=== PATIENT | female | born 1990 | race Caucasian/White ===

== ENCOUNTER → 2024-09-11 15:21 | Outpatient (REF) | payer BC, SELFPAY | LOC: PNTC 15:21 | PROVIDERS: ATTENDING PHYSICIAN Obstetrics & Gynecology | DX: Z29.13 Encounter for prophylactic Rho(D) immune globulin (principal); Z34.82 Encounter for supervision of other normal pregnancy, second trimester | CPT/HCPCS: 36415; 86850; 86900; 86901; 96372; J2790 ==

== ENCOUNTER 2024-09-25 06:51 | Emergency (ER) | payer BC, SELFPAY ==
[2024-09-25 06:54] VITALS: BP 124/81
--- NOTE | 2024-09-25 07:22 | ED.GENMED ---
History of Present Illness
General
Chief Complaint: Chest Problem
Source: patient
Exam Limitations: none
Time Seen by Provider: 09/25/24 07:08
History of Present Illness
History of Present Illness:
34-year-old otherwise healthy female presents with the onset of chest pressure starting last evening. She was sitting watching basketball when it started. It feels like there is a weight on her chest that is constant. It is not made worse with
deep breathing. She denies any more shortness of breath than usual. She is currently 30 weeks with her first . She denies abdominal pain or bleeding. She discussed her symptoms with her OB on-call and they recommend she come
here for evaluation. She took some Tums provided mild relief but still was not able to sleep despite this relief. No leg swelling or calf pain. She is on prenatals but does not take any other medication. No other
Phy Exam
Physical Exam
Physical Exam:
General: Well-appearing female no acute respiratory distress
HEENT: Normocephalic atraumatic
Heart: Regular rate and rhythm
Lungs: Clear no wheeze
Extremities: No cyanosis or edema
Course
Orders/Labs/Results
Orders:
Orders
09/25/24 07:00
EKG [Electrocardiogram (*1)] Urgent
Reason for Study: Chest Pain
EKG- Treatment ONCE
09/25/24 07:38
Complete Blood Count/With Diff Urgent
Comprehensive Metabolic Panel Urgent
Ferritin Urgent
Comment: ADD ON
Iron Urgent
Comment: ADD ON
Lipase Urgent
Total Iron Binding Urgent
Comment: ADD ON
Troponin I Urgent
09/25/24 07:40
Non-stress Test Routine
Reason for Exam: Chest Pressure
Comment: To be performed at testing center
09/25/24 07:45
Add On- LAB Urgent
Tests Added?: Iron, TIBC, ferritin
09/25/24 07:47
Urinalysis Reflex To Culture Urgent
Date Specimen was Collected: 09/25/24
Time Specimen was Collected: 07:46
Urine Microscopic Reflex Cult Urgent
Urine Culture Urgent
ILA Source: U
Specimen Description:
Date Specimen was Collected: 09/25/24
Time Specimen was Collected: 07:46
Abnormal Lab Results
09/25/24 09/25/24
07:38 07:47
RBC 3.44 L 10^6/uL
(4.20-5.40)
Hgb 10.9 L g/dL
(12.0-16.0)
Hct 31.7 L %
(37.0-47.0)
MCH 31.7 H pg
(27.0-31.0)
Abs Immat Gran (auto) 0.1 H 10^3/uL
(0-0.05)
Absolute Neuts (auto) 6.8 H 10^3/uL
(1.4-6.5)
Absolute Monos (auto) 0.8 H 10^3/uL
(0.1-0.6)
Immature Gran % 1.2 H %
(0-0.5)
BUN 5 L mg/dl
(7-17)
Creatinine 0.4 L mg/dL
(0.6-1.0)
Total Protein 6.2 L g/dl
(6.3-8.2)
Leukocyte Esterase Rfl 1+ A
(Negative)
09/25/24 07:38
09/25/24 07:38
Vital Signs
Initial and Last Documented VS:
Initial Vital Signs
Temp Pulse Resp BP Pulse Ox
98.8 F 116 16 124/81 97
09/25/24 06:54 09/25/24 06:54 09/25/24 06:54 09/25/24 06:54 09/25/24 06:54
Last Documented Vital Signs
Temp Pulse Resp BP Pulse Ox
98.8 F 85 16 108/79 98
09/25/24 06:54 09/25/24 08:02 09/25/24 08:02 09/25/24 08:02 09/25/24 07:45
MDM/Problems Addressed
Differential Diagnosis Includes:
Chest pressure. Mild relief with Tums. This is constant since last night. This would be atypical for ACS. There is no pleuritic component. She is not hypoxic nor she tachycardic. Please note initial triage heart rate was 16 however EKG
performed shortly after this showed heart rate in the 80s without ischemic changes. During my exam on the oximeter she has a heart rate in the 80s as well. She is not tachycardic. No signs suggestive of DVT.
*Critical Care Note
Total Time (30-74mins, 75-104mins- exclusive of procedures): Not Applicable
Update Note
Update Note:
Workup here unremarkable with negative troponin and lipase. Patient's vital signs remained stable. No arrhythmias on monitor. Do not suspect ACS or PE. Question possible GI related symptoms such as reflux. Discussed with [facility] who will see the
patient for nonstress test as soon as she is discharged from the emergency room
ED Attending Note
-
Portions of this chart may have been created with voice recognition software.� Occasional wrong word or��sound alike� substitutions may have occurred due to the inherent limitations of voice recognition software.
Discharge Plan
Departure
Patient Disposition: Home (Routine Discharge)
Date of Disposition: 09/25/24
Time of Disposition: 08:21
Patient with high blood pressure during this ER visit?: No
Discharge Problem:
Chest pain
Instructions: Chest Pain PCP Follow Up
Referrals:
Arianne Huston PA-C [Family Provider] -
Activity Restrictions/Additional Instructions:
Please return here for worsening symptoms. Go to the testing center for nonstress test upon leaving the emergency room
Interventions
Interventions:
*Risk Screen - Suicide Last Done: 09/25/24 06:54
*General Assessment Last Done: 09/25/24 07:41
*Neglect/Abuse Screening Last Done: 09/25/24 06:54
*ED- Fall Risk Assessment Last Done: 09/25/24 07:41
*ED COVID-19 Vaccine History Last Done: 09/25/24 07:41
ED- Pulmonary Assessment Last Done: 09/25/24 07:45
Discharge Date and Time
Print Language: [facility]
[2024-09-25 07:40] VITALS: BMI 28.8
[2024-09-25 07:41] VITALS: BP 112/66
[2024-09-25 08:00] VITALS: BP 108/79
[2024-09-25 08:00] LABS: % Basophils 0.4 % (0-2); % Eosinophils 1.5 % (0-6); % Immature Granulocytes 1.2 % (0-0.5); % Lymphocytes 25.5 % (20.5-51.1); % Monocytes 7.7 % (1.7-9.3); % Neutrophils 63.7 % (42.2-75.2); Absolute Eosinophils 0.2 10^3/uL (0-0.7); Absolute Immature Granulocytes 0.1 10^3/uL (0-0.05); Absolute Lymphocytes 2.7 10^3/uL (1.2-3.4); Absolute Monocytes 0.8 10^3/uL (0.1-0.6); Absolute Neutrophils 6.8 10^3/uL (1.4-6.5); Hematocrit 31.7 % (37.0-47.0); Hemoglobin 10.9 g/dL (12.0-16.0); Mean Corp Hgb Conc. 34.4 g/dL (33.0-37.0); Mean Corpuscular Hgb 31.7 pg (27.0-31.0); Mean Corpuscular Volume 92.2 fL (81.0-99.0); Nucleated Red Blood Cells % 0 %; Platelet Count 254 10^3/uL (130-400); Red Blood Cell Count 3.44 10^6/uL (4.20-5.40); Red Cell Dist. Width 13.8 % (11.5-14.5); White Blood Cell Count 10.7 10^3/uL (4.8-10.8)
[2024-09-25 08:02] VITALS: BP 108/79
[2024-09-25 08:06] LABS: Urine Albumin Negative (Neg - Trace); Urine Bilirubin Negative (Negative); Urine Character Clear (Clear); Urine Color Yellow; Urine Glucose Negative (Negative); Urine Ketone Negative (Negative); Urine Leukocyte 1+ (Negative); Urine Nitrite Negative (Negative); Urine Occult Blood Negative (Negative); Urine Urobilinogen Negative (Neg - 1+); Urine pH 6.5 (5.0-9.0)
[2024-09-25 08:08] LABS: ALT (SGPT) 18 U/L (0-35); AST (SGOT) 24 U/L (14-36); Albumin 3.6 g/dl (3.5-5.0); Alkaline Phosphatase 91 U/L (38-126); Blood Urea Nitrogen 5 mg/dl (7-17); Calcium 9.6 mg/dl (8.4-10.2); Carbon Dioxide 23 mmol/L (22-30); Chloride 107 mmol/L (98-107); Estimated Creatinine Clearance > 125 ml/min; Glucose 93 mg/dl (70-99); Lipase 119 U/L (23-300); Sodium 136 mmol/L (135-145); Total Bilirubin 0.4 mg/dl (0.2-1.3); Total Protein 6.2 g/dl (6.3-8.2); eGFR > 60.00
[2024-09-25 08:20] LABS: Iron 129 ug/dl (37-170); Troponin I < 0.012 ng/ml
[2024-09-25 08:29] LABS: Percent Saturation 29 % (20-50); Total Iron Binding Capacity 431 ug/dl (265-497)
[2024-09-25 08:39] LABS: Urine Squamous Cell 26-30 /LPF (Few)
[2024-09-25 08:40] LABS: Urine Urothelial Cell 0-2 /LPF (FEW)
[2024-09-25 08:41] LABS: Urine Bacteria Moderate (Negative)
[2024-09-25 08:45] VITALS: BP 108/79
[2024-09-25 09:16] LABS: Ferritin 19.5 ng/ml (6.24-137)
== END 2024-09-25 08:49 | disposition home or self-care (01) ==
LOC: EMR 06:51
PROVIDERS: Physician Assistant; EMERGENCY PHYSICIAN Emergency Medicine; FAMILY PHYSICIAN Obstetrics & Gynecology
DX: O99.891 Other specified diseases and conditions complicating pregnancy (principal); R07.89 Other chest pain; Z3A.30 30 weeks gestation of pregnancy
CPT/HCPCS: 99284; 80053; 81003; 81015; 82728; 83540; 83550; 83690; 84484; 85025; 87086; 93005

== ENCOUNTER 2024-11-29 11:42 | Observation (INO) | payer BC, SELFPAY ==
[2024-11-29 12:10] VITALS: BMI 31.3
[2024-11-29 12:15] VITALS: BP 125/78
[2024-11-29 13:21] LABS: % Basophils 0.5 % (0-2); % Immature Granulocytes 0.5 % (0-0.5); % Lymphocytes 23.6 % (20.5-51.1); % Monocytes 8.8 % (1.7-9.3); % Neutrophils 65.6 % (42.2-75.2); Absolute Basophils 0.1 10^3/uL (0-0.2); Absolute Eosinophils 0.1 10^3/uL (0-0.7); Absolute Immature Granulocytes 0.1 10^3/uL (0-0.05); Absolute Lymphocytes 2.2 10^3/uL (1.2-3.4); Absolute Monocytes 0.8 10^3/uL (0.1-0.6); Hematocrit 37.6 % (37.0-47.0); Hemoglobin 12.7 g/dL (12.0-16.0); Mean Corp Hgb Conc. 33.8 g/dL (33.0-37.0); Mean Corpuscular Hgb 32.1 pg (27.0-31.0); Mean Corpuscular Volume 94.9 fL (81.0-99.0); Nucleated Red Blood Cells % 0 %; Platelet Count 199 10^3/uL (130-400); Red Blood Cell Count 3.96 10^6/uL (4.20-5.40); Red Cell Dist. Width 13.4 % (11.5-14.5); White Blood Cell Count 9.1 10^3/uL (4.8-10.8)
[2024-11-29 13:32] LABS: ALT (SGPT) 13 U/L (0-35); AST (SGOT) 20 U/L (14-36); Albumin 4.2 g/dl (3.5-5.0); Alkaline Phosphatase 177 U/L (38-126); Blood Urea Nitrogen 7 mg/dl (7-17); Carbon Dioxide 24 mmol/L (22-30); Chloride 106 mmol/L (98-107); Estimated Creatinine Clearance 120 ml/min; Glucose 85 mg/dl (70-99); Potassium 4.2 mmol/L (3.5-5.1); Sodium 136 mmol/L (135-145); Total Bilirubin 0.6 mg/dl (0.2-1.3); Total Protein 7.1 g/dl (6.3-8.2); eGFR > 60.00
[2024-11-29 13:54] LABS: Protein/creatinine Ratio 0.3; Urine Protein 13 mg/dl
== END 2024-11-29 14:23 | disposition home or self-care (01) ==
LOC: LDRP 11:42
PROVIDERS: Obstetrics & Gynecology; ADMITTING PHYSICIAN Student in an Organized Health Care Education/Training Program
DX: O13.3 Gestational [pregnancy-induced] hypertension without significant proteinuria, third trimester (principal); Z3A.39 39 weeks gestation of pregnancy
CPT/HCPCS: 36415; 80053; 82570; 84156; 85025; 86850; 86870; 86900; 86901; G0378

== ENCOUNTER 2024-12-03 19:28 | Inpatient (IN) | payer BC, SELFPAY ==
[2024-12-03 19:57] VITALS: BP 115/79; BMI 31.3
[2024-12-03] MEDS: CYTOTEC 25 MICROGRAM VAG (20:18)
[2024-12-03 20:21] LABS: % Basophils 0.3 % (0-2); % Eosinophils 1.5 % (0-6); % Immature Granulocytes 0.5 % (0-0.5); % Lymphocytes 24.5 % (20.5-51.1); % Neutrophils 66.2 % (42.2-75.2); Absolute Eosinophils 0.1 10^3/uL (0-0.7); Absolute Lymphocytes 2.1 10^3/uL (1.2-3.4); Absolute Monocytes 0.6 10^3/uL (0.1-0.6); Absolute Neutrophils 5.7 10^3/uL (1.4-6.5); Hematocrit 33.2 % (37.0-47.0); Hemoglobin 11.6 g/dL (12.0-16.0); Mean Corp Hgb Conc. 34.9 g/dL (33.0-37.0); Mean Corpuscular Hgb 32.4 pg (27.0-31.0); Mean Corpuscular Volume 92.7 fL (81.0-99.0); Mean Platelet Volume 12.2 fL (7.4-10.4); Nucleated Red Blood Cells % 0 %; Platelet Count 179 10^3/uL (130-400); Red Blood Cell Count 3.58 10^6/uL (4.20-5.40); Red Cell Dist. Width 13.4 % (11.5-14.5); White Blood Cell Count 8.6 10^3/uL (4.8-10.8)
[2024-12-04] MEDS: CYTOTEC 50 MICROGRAM PO (00:30)
[2024-12-04] MEDS: LR 1000 IV ×3 (04:11→10:00)
[2024-12-04] MEDS: STADOL 1 MG IV ×2 (04:11→06:20)
[2024-12-04] MEDS: CYTOTEC PO ×3 (06:22→12:00)
[2024-12-04] MEDS: PEPCID PO ×2 (06:22→22:04)
[2024-12-04] MEDS: SUBLIMAZE 100 MCG EPIDURAL (09:12)
[2024-12-04] MEDS: FENTANYL/BUPIVACAINE 100 EPIDURAL (09:12)
[2024-12-04] MEDS: MOTRIN 600 MG PO ×2 (15:45→22:03)
[2024-12-04] MEDS: TUMS CHEWABLE TABLET 400 MG PO (16:30)
[2024-12-04] MEDS: TYLENOL 650 MG PO (22:04)
[2024-12-05] MEDS: PEPCID PO ×2 (02:44→21:33)
[2024-12-05] MEDS: MOTRIN 600 MG PO ×3 (05:17→21:27)
[2024-12-05] MEDS: TYLENOL 650 MG PO ×3 (05:17→21:27)
[2024-12-05 05:38] LABS: Hematocrit 28.8 % (37.0-47.0); Hemoglobin 10.1 g/dL (12.0-16.0)
[2024-12-05] MEDS: PRENATAL PLUS 1 TABLET PO (09:47)
[2024-12-05] MEDS: SENOKOT-S 1 TABLET PO (09:47)
[2024-12-05] MEDS: FEOSOL 325 MG PO (14:10)
[2024-12-05] MEDS: RHOGAM 300 MCG IM (14:12)
[2024-12-05] MEDS: PEPCID 20 MG PO (22:57)
[2024-12-06] MEDS: TYLENOL 650 MG PO (05:34)
[2024-12-06] MEDS: MOTRIN 600 MG PO (05:34)
[2024-12-06] MEDS: FEOSOL 325 MG PO (08:22)
[2024-12-06] MEDS: PRENATAL PLUS 1 TABLET PO (08:22)
[2024-12-07 17:50] LABS: Syphilis/T. pallidum Ab Reflex Negative (Negative)
== END 2024-12-06 13:30 | disposition home or self-care (01) | DRG 807 ==
LOC: LDRP 19:28
PROVIDERS: Obstetrics & Gynecology; ADMITTING PHYSICIAN Student in an Organized Health Care Education/Training Program
PROC: 3E0P7VZ Introduction of Hormone into Female Reproductive, Via Natural or Artificial Opening (ICD-10-PCS; 2024-12-03)
PROC: 10E0XZZ Delivery of Products of Conception, External Approach (ICD-10-PCS; 2024-12-04)
PROC: 10907ZC Drainage of Amniotic Fluid, Therapeutic from Products of Conception, Via Natural or Artificial Opening (ICD-10-PCS; 2024-12-04)
PROC: 0KQM0ZZ Repair Perineum Muscle, Open Approach (ICD-10-PCS; 2024-12-04)
DX: O70.1 Second degree perineal laceration during delivery (principal); Z37.0 Single live birth; Z3A.40 40 weeks gestation of pregnancy
CPT/HCPCS: 88307; 85014; 85018; 85025; 85461; 86780; 86850; 86900; 86901; J2790